=== PATIENT | female | born 1975 | race Caucasian/White ===

== ENCOUNTER 2016-04-29 06:03 | Emergency (ER) | payer BC ==
[2016-04-29 06:12] VITALS: RESP 16
[2016-04-29] MEDS ORDERED: IBUPROFEN 600 MG TAB PO STA (06:19)
[2016-04-29] MEDS ORDERED: HYDROcodone/APAP 5-325MG 1 EACH TAB PO STA (06:19)
--- NOTE | 2016-04-29 06:21 | ED ---
General Adult HPI - General Chief complaint: Extremity Injury, Upper Stated complaint: Fell down stairs Time Seen by Provider: 04/29/16 06:05 Source: patient, RN notes reviewed Mode of arrival: ambulatory Limitations: no limitations - History of Present Illness Initial comments: This is a 41-year-old female presents emergency Department after she fell down a couple of steps and then slid the rest were downstairs. Patient complains of left elbow pain and left wrist pain. Patient denies any upper arm or shoulder pain patient has any back pain. Patient denies hitting her head or hurting her neck. Patient denies any chest abdomen pain or back pain. Patient denies any lower extremity pain. Patient was able to ambulate after the incident but it hurts to bend her elbow on the left. - Related Data Previous Rx's Medication Instructions Recorded Hydrocodone/Acetaminophen [Hildreth 1 each PO Q4HR PRN #20 tab 04/29/16 5-325] Ibuprofen [Motrin] 600 mg PO Q6HR PRN #20 tab 04/29/16 Allergies Allergy/AdvReac Type Severity Reaction Status Date / Time No Known Allergies Allergy Verified 04/29/16 06:11 Review of Systems ROS Statement: Those systems with pertinent positive or pertinent negative responses have been documented in the HPI. ROS Other: All systems not noted in ROS Statement are negative. Past Medical History Past Medical History: Asthma History of Any Multi-Drug Resistant Organisms: None Reported Past Surgical History: Appendectomy, Orthopedic Surgery Additional Past Surgical History / Comment(s): left foot sx Past Psychological History: No Psychological Hx Reported Smoking Status: Never smoker Past Alcohol Use History: Occasional Past Drug Use History: None Reported General Exam - General Exam Comments Initial Comments: GENERAL Patient is well-developed and well-nourished. Patient is in mild distress. Neck has full range of motion. EYES Patient's pupils are equal and round. Extraocular motion is intact SKIN Unremarkable NEURO The patient is alert and oriented 3 PYSCH Patient has normal interpersonal interactions. MUSCULOSKELETAL Patient's left elbow is tender to palpation on the posterior surface and the wrist is tender on the ulnar surface. However wrist has full range of motion Limitations: no limitations Course Vital Signs 04/29/16 06:07 Temperature 97.5 F L Pulse Rate 83 Respiratory 16 Rate Blood Pressure 139/82 O2 Sat by Pulse 98 Oximetry Medical Decision Making - Medical Decision Making X-ray of the wrist shows no acute abnormality. X-ray of the elbow shows a chip fracture of the olecranon Disposition Clinical Impression: Fracture of olecranon process of left ulna Disposition: HOME SELF-CARE Condition: Good Instructions: Elbow Fracture in Adults (ED) Prescriptions: Hydrocodone/Acetaminophen [Hildreth 5-325] 1 each PO Q4HR PRN #20 tab PRN Reason: Pain Ibuprofen [Motrin] 600 mg PO Q6HR PRN #20 tab PRN Reason: For pain Referrals: None,Stated [Primary Care Provider] - 1-2 days Nick Ulloa MD [STAFF PHYSICIAN] - 1-2 days Time of Disposition: 06:51
--- NOTE | 2016-04-29 06:59 | XR ---
EXAMINATION TYPE: XR elbow complete LT DATE OF EXAM: 04/29/2016 6:48 AM CLINICAL HISTORY: pain TECHNIQUE: Frontal, lateral and oblique images of the left elbow are obtained. COMPARISON: None. FINDINGS: There is no acute fracture/dislocation evident of the elbow. No abnormal fat pad signs ar e seen. 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 There is also possibility of medial epicondylitis changes with small bone spurs in the medial epicondylar area. There is possibility of old trauma pilo nges in the medial epicondyle. IMPRESSION: There is no acute fracture or dislocation of the elbow. Possible old trauma changes and medial epicondylitis changes. Possible triceps tendinitis changes.
--- NOTE | 2016-04-29 07:02 | XR ---
EXAMINATION TYPE: XR wrist complete LT DATE OF EXAM: 04/29/2016 6:49 AM CLINICAL HISTORY: pain TECHNIQUE: Frontal, lateral and oblique images of the left wrist are obtained. COMPARISON: None. FINDINGS: There is no acute fracture/dislocation evident. The joint spaces appear within normal tidwell its. The overlying soft tissue appears unremarkable. The left ulna is shorter with negative ulnar va riation. Small sclerotic density focus is noted in the base of the left fifth metacarpal bone most likely repr esenting benign bone island. IMPRESSION: There is no acute fracture or dislocation seen. ICD 10 NO FRACTURE, INITIAL EVALUATION
[2016-04-29 07:26] VITALS: BP 118/73; PULSE 78; TEMP 97.4
== END 2016-04-29 07:28 | disposition home or self-care (01) ==
LOC: EC 06:03
DX: S52.022A Displaced fracture of olecranon process without intraarticular extension of left ulna, initial encounter for closed fracture (principal); W10.9XXA Fall (on) (from) unspecified stairs and steps, initial encounter
CPT/HCPCS: 99284

== ENCOUNTER → 2016-11-10 | Outpatient (CLI) | payer BC ==
[2016-11-10 11:08] LABS: Basophils # (A) 0.1 k/uL (0-0.2); Basophils % (A) 1 %; CH 31.5; CHCM 33.5; Eosinophils % (A) 1 %; HCT 43.6 % (34.0-46.0); HDW 2.26; HGB 14.2 gm/dL (11.4-16.0); Luc # (Auto) 0.09; Luc % (Auto) 1; Lymphocytes # (A) 2.4 k/uL (1.0-4.8); Lymphocytes % (A) 36 %; MCH 30.6 pg (25.0-35.0); MCHC 32.5 g/dL (31.0-37.0); MCV 94.2 fL (80.0-100.0); Mean Platelet Volume 6.9; Monocytes # (A) 0.2 k/uL (0-1.0); Monocytes % (A) 4 %; Neutrophils # (A) 3.8 k/uL (1.3-7.7); Neutrophils % (A) 57 %; RBC 4.62 m/uL (3.80-5.40); RDW 13.3 % (11.5-15.5); WBC 6.7 k/uL (3.8-10.6); WBC (Perox) 6.39
== END | disposition home or self-care (01) ==
LOC: LABPAT 10:42
PROVIDERS: ATTEND Obstetrics & Gynecology Obstetrics
DX: Z01.812 Encounter for preprocedural laboratory examination (principal); N84.0 Polyp of corpus uteri
CPT/HCPCS: 36415; 85025

== ENCOUNTER 2016-11-20 11:04 | Day surgery (SDC) | payer BC ==
[2016-11-12 14:31] VITALS: BMI 24.3
[~2016-11-20 11:04] MED LIST: DEXAMETHASONE SOD PHOSPHATE 10 MG/ML 1 ML VIAL IV ONE; HYDROmorphone 1 MG/ML 1 ML SYRINGE IVP PRN; LIDOCAINE 1% 20 ML VIAL (10MG/ML) FOR IV START INTRADERMA PRN; ONDANSETRON 4 MG/2 ML VIAL IVP ONE; Pre Op ABX Message 1 EACH MISC MISCELLANE ONE; SCOPOLAMINE 1.5MG/72HR PATCH TRANSDERM ONE
[2016-11-20] MEDS: LACTATED RINGERS 1,000 ML IV SCH ×2 (11:23→11:35)
[2016-11-20] MEDS ORDERED: fentaNYL (PF) 50 MCG/ML 2 ML AMP ONE (12:11)
[2016-11-20] MEDS ORDERED: LIDOCAINE 1% INJ 10MG/ML (20 ML MDV) ONE (12:11)
[2016-11-20] MEDS ORDERED: PROPOFOL 10 MG/ML 20 ML VIAL IV ONE (12:11)
[2016-11-20] MEDS ORDERED: MIDAZOLAM 2 MG/2 ML VIAL ONE (12:11)
[2016-11-20] MEDS ORDERED: KETOROLAC 30 MG/ML 1 ML VIAL ONE (12:11)
[2016-11-20] MEDS ORDERED: ONDANSETRON 4 MG/2 ML VIAL IVP PRN (12:36)
[2016-11-20] MEDS ORDERED: IBUPROFEN 600 MG TAB PO PRN (12:36)
[2016-11-20] MEDS ORDERED: Acetaminophen-Codeine 300-30mg TAB PO PRN (12:36)
--- NOTE | 2016-11-20 12:41 | P.OP ---
Date of Procedure: 11/20/16 Preoperative Diagnosis: Abnormal uterine bleeding, endometrial polyp Postoperative Diagnosis: Same Procedure(s) Performed: Hysteroscopy, dilation and curettage Implants: Anesthesia: MAC Surgeon: Clarissa House Estimated Blood Loss (ml): 5 IV fluids (ml): 600 Urine output (ml): 175 Pathology: other (Endometrial curettings/endometrial polyp) Condition: stable Disposition: PACU Indications for Procedure: Irregular menstrual cycle, endometrial polyp Operative Findings: Overall normal-appearing endometrial cavity with large in vitro polyp Description of Procedure: Patient operating room where general anesthesia was obtained without difficulty by the anesthesia department. She was then prepped and draped in normal sterile fashion in dorsal lithotomy position. A weighted speculum posterior vaginal vault and a red rubber catheter is used to drain the bladder of clear yellow urine. The anterior lip of the cervix was visualized and grasped with a single-tooth tenaculum. Cervix was then gently dilated, and hysteroscope was advanced through the cervix and toward the endometrial cavity a large polyp was noted on the right-hand side of the uterine wall otherwise the cavity appeared normal. The hysteroscope was removed. A sharp curettage was performed the polyp was noted to be removed intact and whole with the curettage. At this point the single-tooth tenaculum was removed from the anterior lip of the cervix hemostasis was appreciated all other attachments were removed from the vaginal vault at this time. All counts were correct 2 patient tolerated procedure well and was taken to the recovery room awake in stable condition
[2016-11-20 12:50] VITALS: TEMP 97.2
[2016-11-20 13:01] VITALS: RESP 16
[2016-11-20 14:08] VITALS: BP 126/80; PULSE 63
== END 2016-11-20 14:40 | disposition home or self-care (01) ==
LOC: OR 11:04
PROVIDERS: ATTEND Obstetrics & Gynecology Obstetrics
DX: N84.0 Polyp of corpus uteri (principal); N93.8 Other specified abnormal uterine and vaginal bleeding; J45.909 Unspecified asthma, uncomplicated
CPT/HCPCS: 81025; 88305; 58558; J2250; J1100; J2405; J2001; J3010; J1885; J2704

== ENCOUNTER 2020-08-24 19:16 | Emergency (ER) | payer BC ==
[2020-08-24 19:21] VITALS: BP 140/92; PULSE 91; RESP 18; TEMP 98.2
--- NOTE | 2020-08-24 20:00 | ED ---
Upper Extremity HPI - General Chief Complaint: Extremity Injury, Upper Stated Complaint: Lft arm injury Time Seen by Provider: 08/24/20 19:26 Source: patient, RN notes reviewed Mode of arrival: ambulatory Limitations: no limitations - History of Present Illness Initial Comments: Patient is a 45-year-old female presents to emergency with left wrist pain for approximately one week after a golfing injury. She notes that she was swinging on her club hit the ground and stopped completely. She notes that she's been wearing a brace that she got [id number] to try to help with pain but is not working. She notes that the pain isn't too bad lot rest just on ulnar deviation it sends shooting pain up versus but second. She notes she does have full range of motion full Sensation full-strength in her left hand. She was in no apparent distress or pain while sitting in bed during exam and interview. She denied any need for pain medication this time. She denied any weakness numbness tingling decreased range of motion or strength in her left hand wrist chest pain shortness breath headache nausea vomiting diarrhea constipation fever fatigue chills. - Related Data Home Medications Medication Instructions Recorded Confirmed No Known Home Medications 11/12/16 08/24/20 Allergies Allergy/AdvReac Type Severity Reaction Status Date / Time No Known Allergies Allergy Verified 08/24/20 19:42 Review of Systems ROS Statement: Those systems with pertinent positive or pertinent negative responses have been documented in the HPI. ROS Other: All systems not noted in ROS Statement are negative. Past Medical History Past Medical History: Asthma History of Any Multi-Drug Resistant Organisms: None Reported Past Surgical History: Appendectomy, Orthopedic Surgery Additional Past Surgical History / Comment(s): left foot sx Past Psychological History: No Psychological Hx Reported Smoking Status: Never smoker Past Alcohol Use History: Occasional Past Drug Use History: None Reported General Exam Limitations: no limitations General appearance: alert, in no apparent distress Head exam: Present: atraumatic, normocephalic, normal inspection Eye exam: Present: normal appearance, PERRL, EOMI. Absent: scleral icterus, conjunctival injection, periorbital swelling Respiratory exam: Present: normal lung sounds bilaterally. Absent: respiratory distress, wheezes, rales, rhonchi, stridor Cardiovascular Exam: Present: regular rate, normal rhythm, normal heart sounds. Absent: systolic murmur, diastolic murmur, rubs, gallop, clicks Extremities exam: Present: normal inspection, full ROM, normal capillary refill. Absent: tenderness, pedal edema, joint swelling, calf tenderness Left Forearm Wrist exam: Present: normal inspection, full ROM. Absent: tenderness, swelling, abrasion, laceration, ecchymosis, deformity, erythema, tenderness over anatomical snuff box Neurological exam: Present: alert, oriented X3, CN II-XII intact Psychiatric exam: Present: normal affect, normal mood Skin exam: Present: warm, dry, intact, normal color. Absent: rash Course Vital Signs 08/24/20 19:17 Temperature 98.2 F Pulse Rate 91 Respiratory 18 Rate Blood Pressure 140/92 O2 Sat by Pulse 98 Oximetry Medical Decision Making - Medical Decision Making 35-year-old female complaining of left wrist pain for approximately one week after golf injury. X-ray the left wrist ordered. X-ray negative for any acute fractures or dislocations. Case discussed with Dr. Luke, patient can discharge home with follow-up to orthopedist. - Radiology Data Radiology results: report reviewed, image reviewed Left wrist x-ray: Negative left wrist exam. No fracture. Disposition Clinical Impression: Sprain of wrist, left Disposition: HOME SELF-CARE Condition: Stable Instructions (If sedation given, give patient instructions): Wrist Injury (ED) Additional Instructions: Please return to the Emergency Department if symptoms worsen or any other concerns. Follow-up with primary care and orthopedics in the next 3-5 days. Take Tylenol Motrin as needed for pain. Continue to wear brace as needed for symptom control. Is patient prescribed a controlled substance at d/c from ED?: No Referrals: None,Stated [Primary Care Provider] - 1-2 days Andrew Talavera DO [Doctor of Osteopathic Medicine] - 1-2 days Time of Disposition: 20:50
[2020-08-24] MEDS ORDERED: IBUPROFEN 600 MG TAB PO STA (20:45)
--- NOTE | 2020-08-24 20:47 | XR ---
EXAMINATION TYPE: XR wrist complete LT DATE OF EXAM: 08/24/2020 COMPARISON: NONE HISTORY: Wrist pain TECHNIQUE: 4 views FINDINGS: Carpal bones are intact. I see no fracture nor dislocation. Joint spaces are normal. There are no erosions. IMPRESSION: Negative left wrist exam. No fracture.
== END 2020-08-24 21:02 | disposition home or self-care (01) ==
LOC: EC 19:16
DX: S63.502A Unspecified sprain of left wrist, initial encounter (principal); J45.909 Unspecified asthma, uncomplicated; Z90.89 Acquired absence of other organs; W22.8XXA Striking against or struck by other objects, initial encounter
CPT/HCPCS: 99283

== ENCOUNTER 2021-12-09 13:50 | Emergency (ER) | payer BC ==
[2021-12-09 15:07] VITALS: BP 158/93; PULSE 74; RESP 16; TEMP 97.8
[2021-12-09] MEDS ORDERED: KETOROLAC 15 MG/ML 1 ML VIAL IM STA (15:15)
--- NOTE | 2021-12-09 15:34 | XR ---
EXAMINATION TYPE: XR ankle complete LT DATE OF EXAM: 12/09/2021 3:30 PM INDICATION: Patient age:Female; 46 years old; Reason for study: tripped, pain and swelling; COMPARISON: None TECHNIQUE: The left ankle is imaged in frontal, lateral and oblique projections. FINDINGS: There is no evidence of acute osseous pathology. The joint spaces are well-preserved without evidenc e of subluxation or dislocation. Kager's fat pad is intact. Mild soft tissue swelling around the ankl e. No radiopaque foreign bodies are identified. Calcaneal plantar spurring is present. There is acces chary ossicle noted Adjacent to the cuboid bone. An os trigonum is also present. IMPRESSION: 1. No evidence of acute fracture. 2. Subcutaneous swelling around the ankle likely secondary to underlying soft tissue injury.
--- NOTE | 2021-12-09 15:46 | ED ---
General Adult HPI - General Chief complaint: Fall Stated complaint: Left ankle injury Time Seen by Provider: 12/09/21 15:08 Source: patient Mode of arrival: ambulatory Limitations: no limitations - History of Present Illness Initial comments: Patient is a 46-year-old female presenting with chief complaint of left ankle pain. Patient tripped and fell today twisting the ankle. She denies any head injury, loss of consciousness, use of blood thinners. She admits to pain with ambulation and swelling of the ankle. Pain is mainly on the lateral and dorsal portion of the ankle. No numbness, tingling, weakness, loss of range of motion - Related Data Home Medications Medication Instructions Recorded Confirmed No Known Home Medications 11/12/16 08/24/20 Allergies Allergy/AdvReac Type Severity Reaction Status Date / Time No Known Allergies Allergy Verified 12/09/21 15:07 Review of Systems ROS Statement: Those systems with pertinent positive or pertinent negative responses have been documented in the HPI. ROS Other: All systems not noted in ROS Statement are negative. Past Medical History Past Medical History: Asthma History of Any Multi-Drug Resistant Organisms: None Reported Past Surgical History: Appendectomy, Orthopedic Surgery Additional Past Surgical History / Comment(s): left foot sx Past Psychological History: No Psychological Hx Reported Smoking Status: Never smoker Past Alcohol Use History: Occasional Past Drug Use History: None Reported General Exam Limitations: no limitations General appearance: alert, in no apparent distress Head exam: Present: atraumatic, normocephalic, normal inspection Eye exam: Present: normal appearance, EOMI. Absent: scleral icterus, periorbital swelling Neck exam: Present: normal inspection Extremities exam: Present: normal capillary refill Left Ankle exam: Present: tenderness, swelling. Absent: full ROM Neurovascular tendon exam: Present: no vascular compromise Neurological exam: Present: alert, oriented X3, CN II-XII intact Psychiatric exam: Present: normal affect, normal mood Skin exam: Present: warm, dry, intact, normal color. Absent: rash Course Vital Signs 12/09/21 15:05 Temperature 97.8 F Pulse Rate 74 Respiratory 16 Rate Blood Pressure 158/93 O2 Sat by Pulse 100 Oximetry Medical Decision Making - Medical Decision Making Patient is a 46-year-old female presenting with chief complaint of left ankle pain and swelling. Patient tripped and fell today causing her to twist the ankle. On examination distal pulses 2+, normal capillary refill, extremity is warm. Patient is able to wiggle the toes. There is clear swelling to the lateral portion of the ankle. X-ray shows no acute fracture or dislocation, there is some soft tissue swelling seen. Patient is given pain medication and stirrup ankle brace. Follow-up with PCP. Report back to ER with any new or worsening symptoms. Discussed return parameters and answered all questions. Patient conveyed verbal understanding and agreed to the plan. I discussed this case in detail with my attending Dr. Gold. Disposition Clinical Impression: Ankle sprain Disposition: HOME SELF-CARE Condition: Good Instructions (If sedation given, give patient instructions): Ankle Sprain (ED) Additional Instructions: Follow-up with PCP. Report back to ER with any new or worsening symptoms. Rest, ice, compress, elevate the affected limb. Take Motrin and Tylenol as needed for pain control. Is patient prescribed a controlled substance at d/c from ED?: No Referrals: None,Stated [Primary Care Provider] - 1-2 days Time of Disposition: 15:46
== END 2021-12-09 16:00 | disposition home or self-care (01) ==
LOC: EC 13:50
DX: S93.402A Sprain of unspecified ligament of left ankle, initial encounter (principal); J45.909 Unspecified asthma, uncomplicated; W01.0XXA Fall on same level from slipping, tripping and stumbling without subsequent striking against object, initial encounter
CPT/HCPCS: 99284 ×2; 96372 ×2; 73610; L4350; J1885

== ENCOUNTER 2022-03-07 07:18 | Emergency (ER) | payer BC ==
[2022-03-07 07:33] VITALS: BP 145/94; PULSE 92; RESP 20; TEMP 98
--- NOTE | 2022-03-07 08:05 | ED ---
ENT HPI - General Chief complaint: ENT Stated complaint: ear pain, facial swelling Time Seen by Provider: 03/07/22 07:35 Source: patient, RN notes reviewed Mode of arrival: ambulatory Limitations: no limitations - History of Present Illness Initial comments: 47-year-old female presents from emergency Department with chief complaint left- sided a she'll pain, left ear pain. Patient states she has been recently follow-up with ENT that she's been having recurrent infections including mild, influenza, bronchitis states that she's been on some antibiotics has not had any medications 3 weeks she states that her ALLERGIES are causing a large amount issues in which she is going for ALLERGY testing, pulmonary function testing. Patient is on current nasal spray. She states that she started having left ear pain, left jaw facial swelling. Patient which she noticed a lump inside of her cheek. Patient denies any fevers or chills no difficulty swallowing patient offers no other complaints. - Related Data Previous Rx's Medication Instructions Recorded Amoxic-Pot Clav 875-125Mg 1 tab PO Q12HR #20 tab 03/07/22 [Augmentin 875-125] Allergies Allergy/AdvReac Type Severity Reaction Status Date / Time No Known Allergies Allergy Verified 03/07/22 07:32 Review of Systems ROS Statement: Those systems with pertinent positive or pertinent negative responses have been documented in the HPI. ROS Other: All systems not noted in ROS Statement are negative. Past Medical History Past Medical History: Asthma History of Any Multi-Drug Resistant Organisms: None Reported Past Surgical History: Appendectomy, Orthopedic Surgery Additional Past Surgical History / Comment(s): left foot sx Past Psychological History: No Psychological Hx Reported Smoking Status: Never smoker Past Alcohol Use History: Occasional Past Drug Use History: Marijuana General Exam Limitations: no limitations General appearance: alert, in no apparent distress Head exam: Present: atraumatic, normocephalic, normal inspection Eye exam: Present: normal appearance, PERRL, EOMI. Absent: scleral icterus, conjunctival injection, periorbital swelling ENT exam: Present: mucous membranes moist. Absent: normal oropharynx (Left oromucosa Stensen's duct is noted, swelling with mild tenderness, left-sided facial swelling) Neck exam: Present: normal inspection, full ROM. Absent: tenderness, meningismus, lymphadenopathy Respiratory exam: Present: normal lung sounds bilaterally. Absent: respiratory distress, wheezes, rales, rhonchi, stridor Cardiovascular Exam: Present: regular rate, normal rhythm, normal heart sounds. Absent: systolic murmur, diastolic murmur, rubs, gallop, clicks Course Vital Signs 03/07/22 07:30 Temperature 98 F Pulse Rate 92 Respiratory 20 Rate Blood Pressure 145/94 O2 Sat by Pulse 98 Oximetry Medical Decision Making - Medical Decision Making 47-year-old presented for left-sided facial pain. Patient has blocked parotid gland there is notable Stensen duct I did attempt to express stone unable patient will be discharged on oral antibiotics, advised to use hard candies or sour candies will follow-up with her ENT or oral. Return parameters were discussed. Disposition Clinical Impression: Sialadenitis, Parotid duct obstruction Disposition: HOME SELF-CARE Condition: Stable Instructions (If sedation given, give patient instructions): Parotid Duct Obstruction (ED) Additional Instructions: Please return to the Emergency Department if symptoms worsen or any other concerns. Prescriptions: Amoxic-Pot Clav 875-125Mg [Augmentin 875-125] 1 tab PO Q12HR #20 tab Is patient prescribed a controlled substance at d/c from ED?: No Referrals: Nonstaff,Physician [Primary Care Provider] - 1-2 days Time of Disposition: 08:05
== END 2022-03-07 08:16 | disposition home or self-care (01) ==
LOC: EC 07:18
DX: K11.20 Sialoadenitis, unspecified (principal); K11.8 Other diseases of salivary glands; J45.909 Unspecified asthma, uncomplicated; F12.90 Cannabis use, unspecified, uncomplicated
CPT/HCPCS: 99283

== ENCOUNTER → 2022-03-26 | Outpatient (CLI) | payer BC ==
--- NOTE | 2022-03-27 07:46 | US ---
EXAMINATION TYPE: US thyroid st tissue head/neck DATE OF EXAM: 03/26/2022 COMPARISON: NONE CLINICAL HISTORY: Left intermittent mass with upper neck/head swelling. GLAND SIZE: Right Lobe: 3.9 x 1.0 x 1.0 cm Overall Parenchyma: homogenous Left Lobe: 3.9 x 0.96 x 1.0 cm Overall Parenchyma: homogeneous Isthmus Thickness: 0.25 cm NODULES RIGHT: # of nodules measured on right: 0 LEFT: # of nodules measured on left: 1 1. 1.2 X 0.77 x 0.95 cm, lower , solid or almost completely solid, hypoechoic nodule, which is wide r than tall, with smooth margins, without echogenic foci. GI 3 ISTHMUS: # of nodules measured in the isthmus: 0 *Area of mass: Left neck superior medial, the submandibular gland is present and wnl *Area of swelling: Left neck superior lateral, the parotid gland is present and wnl *Between the parotid gland and submandibular gland on the left neck a lymph node is present which is more hypoechoic than surrounding nodes (0.69 x 0.68 x 0.72cm IMPRESSION: 1. Mildly suspicious nodule right lobe thyroid. Consider follow up one year. 2. Small lymph node in the region of the left neck swelling. CT with contrast soft tissue neck could further evaluate this finding. 2017 ACR TI-RADS LEVEL: TR-RADS 3 - Mildly Suspicious: Follow if > 1.5 cm, FNA if > 2.5 cm *Highest TI-RADS level nodule reported
== END | disposition home or self-care (01) ==
LOC: RADUSWWP 15:39
DX: R22.1 Localized swelling, mass and lump, neck (principal)
CPT/HCPCS: 76536

== ENCOUNTER → 2022-04-11 | Outpatient (CLI) | payer BC ==
[2022-04-11 16:23] LABS: Thyroid Peroxidase Antibodies <9.0 U/mL (0.0-33.0)
[2022-04-11 16:39] LABS: Prolactin 16.8 ng/mL (2.800-29.200); T4, Free (Free Thyroxine) 0.97 ng/dL (0.800-1.800)
--- NOTE | 2022-04-14 09:43 | MM ---
Reason for Exam: Screening (asymptomatic). Baseline mammogram. Patient History: Menarche at age 14. Last menstrual period: 04/10/2022 Risk Values: Kelsea 5 year model risk: 0.6%. NCI Lifetime model risk: 6.2%. Prior Study Comparison: Patient's first Mammogram. Tissue Density: The breast tissue is heterogeneously dense. This may lower the sensitivity of mammography. Findings: Analyzed By CAD. There is no suspicious group of microcalcifications or new suspicious mass in either breast. Benign-appearing round appearing calcifications within the right breast. Overall Assessment: Benign, BI-RAD 2 Management: Screening Mammogram of both breasts in 1 year. A clinical breast exam by your physician is recommended on an annual basis and results should be correlated with mammographic findings. Electronically signed and approved by: Lyndon Schilling D.O.
== END | disposition home or self-care (01) ==
LOC: RADMAMWWP 09:24
PROVIDERS: ATTEND Internal Medicine
DX: Z12.31 Encounter for screening mammogram for malignant neoplasm of breast (principal); E04.1 Nontoxic single thyroid nodule; R53.83 Other fatigue
CPT/HCPCS: 77063; 77067; 82024; 82533; 82607; 84146; 84439; 84443; 84481; 86376